=== PATIENT | male | born 1990 | race Caucasian/White ===

== ENCOUNTER 2021-11-15 14:43 | Emergency (ER) | payer OTHER ==
[~2021-11-15] VITALS: Ht 182.9 cm; Wt 79.4 kg
[2021-11-15 15:30] VITALS: BP 124/70
[2021-11-15] MEDS ORDERED: CYCLOBENZAPRINE 10 MG TABLET ONE (15:50)
[2021-11-15] MEDS ORDERED: KETOROLAC TROMETHAMINE INJ 30 MG/ML VIAL ONE (15:50)
[2021-11-15] MEDS ORDERED: KETOROLAC TROMETHAMINE INJ 30 MG/ML VIAL IM ONE (16:00)
[2021-11-15] MEDS ORDERED: CYCLOBENZAPRINE 10 MG TABLET PO ONE (16:00)
[2021-11-15] MEDS ORDERED: CYCL5TAB PO ×2 (16:56→17:03)
[2021-11-15] MEDS ORDERED: IBUP-1957 PO ×2 (16:56→17:03)
== END 2021-11-15 17:07 | disposition home or self-care (01) ==
LOC: ER 15:04
DX: S13.4XXA Sprain of ligaments of cervical spine, initial encounter (principal); R51.9 Headache, unspecified; Z60.2 Problems related to living alone; Z79.899 Other long term (current) drug therapy; V49.49XA Driver injured in collision with other motor vehicles in traffic accident, initial encounter; Y93.89 Activity, other specified; Y92.413 State road as the place of occurrence of the external cause; Y99.8 Other external cause status
CPT/HCPCS: 99284; 72125; 96372; 70450; J1885

== ENCOUNTER 2022-01-09 20:22 | Emergency (ER) | payer OTHER ==
[~2022-01-09] VITALS: Ht 182.9 cm; Wt 83.9 kg
[~2022-01-09 20:22] MED LIST: CYCL5TAB PO; IBUP-1957 PO
[2022-01-09] MEDS ORDERED: NABU-141 PO (21:08)
[2022-01-09] MEDS ORDERED: KETOROLAC TROMETHAMINE INJ 60 MG/2 ML VIAL IM ONE ×2 (21:30→21:43)
--- NOTE | 2022-01-09 22:05 | NUR ---
Patient discharged to home in stable condition. Written and verbal after care instructions given. Patient verbalizes understanding of instruction.
[2022-01-09 22:06] VITALS: BP 136/77
== END 2022-01-09 22:09 | disposition home or self-care (01) ==
LOC: ER 20:24
DX: M54.2 Cervicalgia (principal); M79.641 Pain in right hand; Z60.2 Problems related to living alone; Z79.899 Other long term (current) drug therapy; V49.49XA Driver injured in collision with other motor vehicles in traffic accident, initial encounter; Y93.89 Activity, other specified; Y92.413 State road as the place of occurrence of the external cause; Y99.8 Other external cause status
CPT/HCPCS: 99283; 96372; 73130; J1885

== ENCOUNTER 2023-10-28 16:21 | Emergency (ER) | payer OTHER ==
[~2023-10-28] VITALS: Ht 185.4 cm; Wt 87.5 kg
[~2023-10-28 16:21] MED LIST changes: +NABU-141 PO
[2023-10-28] MEDS ORDERED: NAPR-1164 PO (20:54)
[2023-10-28 22:50] VITALS: BP 136/69; TEMP 97.9; O2SAT 98
== END 2023-10-28 22:51 | disposition home or self-care (01) ==
LOC: ER 16:32
DX: S13.4XXA Sprain of ligaments of cervical spine, initial encounter (principal); S60.212A Contusion of left wrist, initial encounter; S20.219A Contusion of unspecified front wall of thorax, initial encounter; S09.8XXA Other specified injuries of head, initial encounter; Z60.2 Problems related to living alone; V43.52XA Car driver injured in collision with other type car in traffic accident, initial encounter; Y93.89 Activity, other specified; Y92.488 Other paved roadways as the place of occurrence of the external cause; Y99.8 Other external cause status
CPT/HCPCS: 70450-TC; 71045-TC; 73110